=== PATIENT | male | born 1940 | race Caucasian/White ===

== ENCOUNTER 2018-05-03 20:33 | Inpatient (IN) ==
[2018-05-03] MEDS ORDERED: hydrALAZINE 25 MG TABLET PO SCH (23:00)
--- NOTE | 2018-05-03 23:59 | Internal Med History&Physical ---
Date of Encounter: 05/04/18 Time of Encounter: 23:59 Internal Medicine - H&P: HPI Chief complaint: fatigue Admitted From: Intrahospital Transfer Plans for Post Hospital Care: Home History of present illness: Kory Contreras is a 77-year-old man with a history of atrial fibrillation, heart failure, CKD and hypothyroidism who underwent pacemaker placement about 2 months ago at [facility] and has been on apixaban for anticoagulation. He is transferred now from [facility] to [place] due to concerns for GI bleed. He states that over the past few weeks he has felt notably fatigued, short of breath and noticed dark stool. He denies abdominal pain, nausea or vomiting however. In the ER he was seen to have a hemoglobin of 6.1 and was transfused with 1 unit of PRBC prior to his transfer here. On arrival he feels well and has no complaints at this time. He does report he took his apixaban earlier in the day. Past Med Surg Social Fam HX - Past Medical History Medical history: arthritis, atrial fibrillation, COPD, coronary artery disease, hyperlipidemia, hypertension, renal disease, thyroid disease Additional medical history: pacer Psychiatric history: no psych history - Past Surgical History Surgical History: vascular surgery - Social History Smoking Status: Former smoker Smokeless Tobacco Status: No Alcohol use: none Drug use: none - Family History Mother History Unknown: Yes Internal Medicine - H&P: Meds Apixaban [Eliquis] 5 mg PO BID 08/24/16 [History] Levothyroxine [Synthroid] 125 mcg PO DAILY 08/24/16 [History] Losartan Potassium [Cozaar] 25 mg PO DAILY 08/24/16 [History] Metoprolol [Lopressor] 100 mg PO DAILY 08/24/16 [History] Simvastatin 10 mg PO DAILY 08/24/16 [History] Amiodarone [Cordarone] 200 mg PO DAILY 10/06/17 [History] Ventolin Hfa 90 mcg IH 05/04/18 [History] Allergy/AdvReac Type Severity Reaction Status Date / Time Penicillins [PCN] Allergy Rash Verified 08/24/16 15:41 All Systems PM: A 10-system review of systems was performed and is negative for pertinent findings except as documented above in the HPI. - Constitutional Exam: Vitals: Reviewed General: Well-appearing and in NAD. Skin: Warm and supple. HEENT: Moist mucous membranes. No conjunctivae pallor. Neck: No lymphadenopathy. No JVD. No carotid bruits. No palpable thyroid. Chest: Normal thoracic expansion. Normal breath sounds. Clear to auscultation. Heart: Normal S1 & S2; rhythmic. No rubs or murmurs. Abdomen: Non-distended, soft and non-tender to palpation. No peritoneal reaction. Extremities: No clubbing, cyanosis or edema. No calf tenderness. Normal distal pulses. Neurological: Awake, alert and oriented to person, place. Psych: Affect appropriate. - Assessment and plan (1) Symptomatic anemia Current Visit: Yes Status: Acute Assessment and plan: Secondary to acute blood loss from GI bleed in the setting of NOAC use. Currently stable. Will repeat H/H to assess response to 1U pRBC. Will keep NPO and consult GI in the morning to consider endoscopy. PPI BID will be started. Keep NPO in the interim. (2) Atrial fibrillation Current Visit: Yes Status: Chronic Assessment and plan: Will monitor on telemetry. Hold anticoagulation and antiplatelet therapy for now until bleeding issue stabilizes. Continue amiodarone, diltiazem and metoprolol. Qualifiers: Atrial fibrillation type: chronic Qualified Code(s): I48.2 - Chronic atrial fibrillation (3) Hypertension Current Visit: Yes Status: Chronic Assessment and plan: Will resume oral medications noting his hypertensive state currently. Qualifiers: Hypertension type: essential hypertension Qualified Code(s): I10 - Essential (primary) hypertension (4) Hypothyroidism Current Visit: Yes Status: Chronic Assessment and plan: Will check TSH and resume levothyroxine. Qualifiers: Hypothyroidism type: unspecified Qualified Code(s): E03.9 - Hypothyroidism, unspecified - Time Spent With Patient Total time spent is greater than 50% in coordination of care (as documented) at patient's floor/unit and/or counseling patient: Greater than 35 minutes
[2018-05-04] MEDS ORDERED: hydrALAZINE 25 MG TABLET PO ONE (00:29)
[2018-05-04] MEDS ORDERED: Ipratropium/Albuterol Neb 3 ML IH PRN (00:39)
[2018-05-04] MEDS ORDERED: Pantoprazole 40 MG VIAL IVP ONE (00:42)
[2018-05-04] MEDS ORDERED: Chloraseptic Spray 177 ML BOTTLE MM PRN (03:08)
[2018-05-04] MEDS: Pantoprazole 40 MG VIAL IVP SCH ×2 (06:13→18:51)
[2018-05-04] MEDS ORDERED: Levothyroxine 25 MCG TABLET PO SCH (06:30)
[2018-05-04 06:37] LABS: Basophils % 0.5 %; Eosinophils % 0.5 %; Hemoglobin 7.4 g/dL (12.9-16.9); Immature Granulocytes % 0.5 % (0-4); Lymphocytes # 0.8 K/mcL (0.6-4.6); Lymphocytes % 14.3 %; Mean Corpuscular HGB Conc 32.2 g/dL (31.6-35.5); Mean Corpuscular Hemoglobin 29.6 pg (28.0-33.3); Mean Platelet Volume 8.7 fL (9.4-12.4); Monocytes # 0.8 K/mcL (0.0-1.3); Platelet Count 243 K/mcL (140-400); Red Cell Distribution Width 14.1 % (11.5-14.5); Segmented Neutrophils % 70.2 %
[2018-05-04 06:50] LABS: INR 1.7
[2018-05-04 06:52] LABS: Activated Partial Thrombo Time 37.3 Seconds (26.0-36.0)
[2018-05-04 07:01] LABS: BUN/Creatinine Ratio 19 (6-26); Blood Urea Nitrogen 24 mg/dL (8-23); Calcium 8.3 mg/dL (8.6-10.3); Carbon Dioxide 24 mEq/L (23-29); Chloride 107 mEq/L (98-107); Glucose 101 mg/dL (70-105); Osmolality,Calculated 286 (280-300); Potassium 4.1 mEq/L (3.5-5.1); Sodium 136 mEq/L (136-145); eGFR For Non-African Americans 56 (> 60)
[2018-05-04 07:14] LABS: Thyroid Stimulating Hormone 4.397 mcIU/mL (0.340-5.600)
[2018-05-04] MEDS ORDERED: Ringers Solution, Lactated 1,000 ML IVC SCH (08:00)
--- NOTE | 2018-05-04 08:41 | Internal Med Progress Note ---
Hospitalist Progress Note - Encounter Date of Encounter: 05/04/18 Time of Encounter: 08:32 - Subjective Interval History: Patient seen and examined this morning at bedside. No acute overnight events. Patient currently denies any chest pain shortness of breath or palpitation. Did have some dizziness and easy fatigability over the past few days. Also on did verify he noted black stool or past few days. Denies any previous similar episode. Has not had any further bowel movements after hospitalization. - Exam Vitals: Temp Pulse Resp BP Pulse Ox 98.1 F 74 16 155/68 93 05/04/18 07:01 05/04/18 07:01 05/04/18 07:01 05/04/18 07:01 05/04/18 07:01 Exam: General: In no acute distress. Conversant. Pleasent Respiratory exam: CTAB. no accessory muscle use, rales, rhonchi, wheezes Cardiovascular exam: RRR, +S1, +S2. systolic murmur noted diffusely. No gallop, rubs. GI/Abdominal exam: Non-tender, Non-distended, normal bowel sounds, soft, no peritoneal signs. Extremities exam: full ROM, no pedal edema, warm, pulses palpable in b/l lower extremities. no calf tenderness Neurological exam: CN II-XII intact, AO X3, no focal deficits. no pronater drift, facial droop, speech deficit Skin exam: No skin rash, ulcer, purpura or ecchymosis. - Assessment and Plan (1) Hypothyroidism Current Visit: Yes Status: Chronic (2) Hypertension Current Visit: Yes Status: Chronic (3) Atrial fibrillation Current Visit: Yes Status: Chronic (4) Symptomatic anemia Current Visit: Yes Status: Acute - Summary of Assessment and Plan Summary of Assessment and Plan: Symptomatic anemia - Likely from acute blood loss from GI bleed, Possibly upper. - Hold apixaban - s/p 1 PRBC. Hb 7.4 from 6.1 - Hemodynamically stable. - keep NPO except meds with sips of water. - Surgery consulted for EGD. - c/w PPI BID Iv Atrial fibrillation - c/w telemetry. - Hold anticoagulation give possible GI bleed. - c/w amiodarone, diltiazem and metoprolol PO with sips of water. Hypertension - c/w home antihypertensive with sips of water. Hypothyroidism - Will check TSH and resume levothyroxine. Internal Medicine: Result - Labs CBC & Chem 7: 05/04/18 06:30 05/04/18 06:30 Labs: Short CBC 05/04/18 Range/Units 06:30 WBC 5.7 (4.3-11.1) K/mcL Hgb 7.4 L (12.9-16.9) g/dL Hct 23.0 L (37.5-50.1) % Plt Count 243 (140-400) K/mcL Neutrophils # 4.0 (1.6-8.9) K/mcL BMP 05/04/18 06:30 Sodium 136 Potassium 4.1 Chloride 107 Carbon Dioxide 24 BUN 24 H Creatinine 1.24 Glucose 101 Calcium 8.3 L - ABG Interpretation ABG results: PT/INR, D-dimer PT 19.0 Seconds (9.4-12.1) H 05/04/18 06:30 Consult Discharge Plan - Plan Referrals: Elena Kraft DO [Primary Care Provider] - (1) Hypothyroidism Qualifiers: Hypothyroidism type: unspecified Qualified Code(s): E03.9 - Hypothyroidism, unspecified (2) Hypertension Qualifiers: Hypertension type: essential hypertension Qualified Code(s): I10 - Essential (primary) hypertension (3) Atrial fibrillation Qualifiers: Atrial fibrillation type: chronic Qualified Code(s): I48.2 - Chronic atrial fibrillation
[2018-05-04] MEDS ORDERED: Levothyroxine Sodium 100 MCG VIAL IVP ONE (08:43)
[2018-05-04] MEDS ORDERED: *HR* Metoprolol 5 MG/5 ML VIAL IVP SCH ×3 (08:48→18:00)
[2018-05-04] MEDS ORDERED: Diltiazem CD (24hr) 120 MG CAPSULE PO SCH (09:00)
[2018-05-04] MEDS: Metoprolol 100 MG TABLET PO SCH (10:04)
[2018-05-04] MEDS: *HR* Amiodarone 200 MG TABLET PO SCH (10:04)
--- NOTE | 2018-05-04 12:12 | Internal Medicine Consult Note ---
Date of Encounter: 05/05/18 Time of Encounter: 12:10 - Assessment and Plan (1) GI bleeding Current Visit: Yes Status: Acute Assessment and plan: This may be from a upper source, but also may be due to a slow right colon bleed. Differential diagnosis to include esophagitis. His gastritis or even ulcer disease. If this is negative with an upper endoscopy tomorrow, he will need colonoscopy. I have discussed risks and benefits of the procedure with he and the family today. They have signed consent. He has had significant blood loss anemia, we will transfuse 1 more unit given his cardiac disease and prevent atrial fibrillation with rapid rates. Continue to maintain IV PPI therapy. Qualifiers: Qualified Code(s): K92.2 - Gastrointestinal hemorrhage, unspecified (2) COPD (chronic obstructive pulmonary disease) Current Visit: Yes Status: Chronic Assessment and plan: This is stable, he is comfortable, he does admit wearing O2 at [place] from time to time. Qualifiers: Qualified Code(s): J44.9 - Chronic obstructive pulmonary disease, unspecified (3) Atrial fibrillation Current Visit: Yes Status: Chronic Qualifiers: Atrial fibrillation type: chronic Qualified Code(s): I48.2 - Chronic atrial fibrillation (4) Hypertension Current Visit: Yes Status: Chronic Qualifiers: Hypertension type: essential hypertension Qualified Code(s): I10 - Essential (primary) hypertension (5) Hypothyroidism Current Visit: Yes Status: Chronic Qualifiers: Hypothyroidism type: unspecified Qualified Code(s): E03.9 - Hypothyroidism, unspecified Internal Medicine - CN: HPI - Data of Consult Patient: new to practice Requesting Physician: Duncan Santiago MD - Consult Narrative Reason for consult: GI bleeding with blood loss anemia History of present illness: Mr. Contreras is a 77 year old male transferred to [place], from [facility]. I was asked to see him regarding GI bleeding, at the request of the hospitalist. He reports in the last week or 2 feeling somewhat progressively weaker, and the last couple of days had had some melena. His last bowel movement with melena and was roughly 2-3 days ago. He said no prior history of GI bleeding. Admits being on a combination of aspirin and ELiquis over the past 4 years He also reports a fair amount of reflux of late, denies any nonsteroidal use. He has lost a fair amount of weight in the last couple months as well.. Past Med Surg Social Fam HX - Past Medical History Medical history: arthritis, atrial fibrillation, COPD, coronary artery disease, hyperlipidemia, hypertension, thyroid disease Additional medical history: pacer Psychiatric history: no psych history - Past Surgical History Surgical History: vascular surgery Additional surgical history: Denies any surgery on the abdominal aorta. - Social History Smoking Status: Former smoker Smokeless Tobacco Status: No Alcohol use: none Drug use: none - Family History Mother History Unknown: Yes - Constitutional Constitutional: anorexia, fatigue, lethargy, weakness, weight loss, no chills, no falls - Cardiovascular Cardiovascular ROS IM: dyspnea on exertion, irregular heart rhythm, no chest pain, no diaphoresis, no syncope - Respiratory Respiratory: dyspnea on exertion, no cough, no dyspnea, no hemoptysis - Gastrointestinal Gastrointestinal: heartburn, melena, no abdominal pain, no belching, no constipation, no diarrhea - Neurological Neurological ROS: weakness, no focal weakness, no paresthesias, no restless legs Internal Medicine - CN: Meds Apixaban [Eliquis] 5 mg PO BID 08/24/16 [History] Levothyroxine [Synthroid] 125 mcg PO DAILY 08/24/16 [History] Losartan Potassium [Cozaar] 25 mg PO DAILY 08/24/16 [History] Metoprolol [Lopressor] 100 mg PO DAILY 08/24/16 [History] Simvastatin 10 mg PO DAILY 08/24/16 [History] Amiodarone [Cordarone] 200 mg PO DAILY 10/06/17 [History] Ventolin Hfa 90 mcg IH 05/04/18 [History] Allergy/AdvReac Type Severity Reaction Status Date / Time Penicillins [PCN] Allergy Rash Verified 08/24/16 15:41 Internal Med - CN: Exam - Constitutional Vitals: Temp Pulse Resp BP Pulse Ox 98.4 F 63 16 160/65 96 05/04/18 10:51 05/04/18 10:51 05/04/18 10:51 05/04/18 10:51 05/04/18 10:51 General appearance IM: Present: A&O X 3, pleasant, no acute distress, underweight, answers questions appropriately - Head Head exam: Present: atraumatic - Eye Eye exam: Present: EOMI, conjuntiva pink, sclera anicteric - ENT ENT exam: Present: mucous membranes moist Additional comments: No teeth - Neck Neck exam general surgery: Present: supple, trachea midline - Respiratory Respiratory exam: Present: CTAB. Absent: respiratory distress, wheezes, tachypnea - Cardiovascular Cardiovascular exam IM: Present: diastolic murmur, RRR, +S4, systolic murmur. Absent: JVD, tachycardia - GI/Abdominal GI/Abdominal exam IM: Present: normal bowel sounds, soft, no peritoneal signs. Absent: mass, splenomegaly, tenderness - Rectal Rectal exam: Present: deferred Internal Medicine - CN: Reslt - Labs CBC & Chem 7: 05/05/18 05:02 05/05/18 05:02 Labs: Short CBC 05/04/18 Range/Units 06:30 WBC 5.7 (4.3-11.1) K/mcL Hgb 7.4 L (12.9-16.9) g/dL Hct 23.0 L (37.5-50.1) % Plt Count 243 (140-400) K/mcL Neutrophils # 4.0 (1.6-8.9) K/mcL BMP 05/04/18 06:30 Sodium 136 Potassium 4.1 Chloride 107 Carbon Dioxide 24 BUN 24 H Creatinine 1.24 Glucose 101 Calcium 8.3 L - ABG Interpretation ABG results: PT/INR, D-dimer PT 19.0 Seconds (9.4-12.1) H 05/04/18 06:30 Consult Discharge Plan - Plan Referrals: Elena Kraft DO [Primary Care Provider] -
[2018-05-04] MEDS ORDERED: 0.9 % Sodium Chloride 500 ML ONE (14:43)
[2018-05-04 18:58] LABS: Hematocrit 25.7 % (37.5-50.1); Hemoglobin 8.4 g/dL (12.9-16.9)
[2018-05-05 05:34] LABS: Basophils % 0.4 %; Eosinophils # 0.1 K/mcL (0.0-0.6); Eosinophils % 0.8 %; Hematocrit 25.4 % (37.5-50.1); Hemoglobin 8.5 g/dL (12.9-16.9); Immature Granulocytes % 0.8 % (0-4); Lymphocytes % 13.4 %; Mean Corpuscular HGB Conc 33.5 g/dL (31.6-35.5); Mean Corpuscular Hemoglobin 29.9 pg (28.0-33.3); Mean Corpuscular Volume 89.4 fL (83.0-100.0); Mean Platelet Volume 8.9 fL (9.4-12.4); Monocytes # 1.2 K/mcL (0.0-1.3); Monocytes % 17.1 %; Neutrophils # 4.9 K/mcL (1.6-8.9); Platelet Count 253 K/mcL (140-400); Red Blood Count 2.84 M/mcL (4.19-5.50); Red Cell Distribution Width 14.6 % (11.5-14.5); Segmented Neutrophils % 67.5 %
[2018-05-05 05:57] LABS: BUN/Creatinine Ratio 17 (6-26); Blood Urea Nitrogen 23 mg/dL (8-23); Calcium 8.3 mg/dL (8.6-10.3); Carbon Dioxide 24 mEq/L (23-29); Chloride 106 mEq/L (98-107); Glucose 104 mg/dL (70-105); Osmolality,Calculated 280 (280-300); Potassium 4.2 mEq/L (3.5-5.1); Sodium 133 mEq/L (136-145); eGFR For Non-African Americans 52 (> 60)
[2018-05-05] MEDS: Pantoprazole 40 MG VIAL IVP SCH ×2 (06:06→18:32)
[2018-05-05] MEDS: *HR* Amiodarone 200 MG TABLET PO SCH (08:30)
[2018-05-05] MEDS: Ringers Solution, Lactated 1,000 ML IVC SCH (08:39)
[2018-05-05] MEDS: Metoprolol 100 MG TABLET PO SCH (08:40)
[2018-05-05] MEDS ORDERED: Simethicone 40 MG/0.6 ML MLS IR ONE (12:13)
[2018-05-05] MEDS ORDERED: Tetracaine/Benzocaine/Butamben 1 SPRAY AEROSOL MM ONE (12:13)
[2018-05-05] MEDS ORDERED: *HR* Midazolam HCl 5 MG/5 ML VIAL IVP ONE (12:13)
[2018-05-05] MEDS ORDERED: *HR* FentaNYL (PF) 100 MCG/2 ML VIAL IVP ONE (12:13)
--- NOTE | 2018-05-05 12:14 | Pre-Sedation Evaluation ---
Pre-sedation evaluation - Pre-sedation checklist Date of procedure: 05/05/18 Procedure: EGD Recent Vitals: Last Vital Signs Temp 97.3 F L 05/05/18 10:43 Pulse 63 05/05/18 10:43 Resp 15 05/05/18 10:43 BP 97/48 05/05/18 10:43 Pulse Ox 92 05/05/18 10:43 H&P (including ROS) documented in medical record: Yes Previous reaction to sedatives/anesthetics: No Dietary Status: NPO after Midnight Airway Assessment: Patient can open mouth completely, TMJ function normal Dentition: full dentition, dentures removed ASA Classification *see protocol: CLASS II-Mild systemic disease Plan of Care: Pt appropriate candidate for procedure/moderate/conscious sedation
[2018-05-05] MEDS ORDERED: 0.9 % Sodium Chloride 1,000 ML IVC SCH (12:15)
[2018-05-05] MEDS ORDERED: PEG/Electrolytes/Ascorbic Acid 1 EACH POWD.PACK PO ONE (12:38)
--- NOTE | 2018-05-05 12:41 | Event Note ---
Date of Encounter: 05/05/18 Time of Encounter: 12:39 EGD Findings: 1. Esophagus is normal 2. Minimal gastritis in the body; biopsied; no bleeding areas noted 3. Normal Duodenum Plan: Bowel prep today, with plan for Colonoscopy tomorrow.
--- NOTE | 2018-05-05 14:03 | Internal Med Progress Note ---
Hospitalist Progress Note - Encounter Date of Encounter: 05/05/18 Time of Encounter: 11:49 - Subjective Interval History: Patient seen and examined this morning at bedside. No acute overnight events. Currently denies any chest pain shortness of breath or palpitation. Denies dizziness currently. Ambulating well. NPO. - Exam Vitals: Temp Pulse Resp BP Pulse Ox 97.3 F L 68 16 166/58 97 05/05/18 10:43 05/05/18 12:30 05/05/18 12:30 05/05/18 12:30 05/05/18 12:30 Exam: General: In no acute distress. Conversant. Pleasent Respiratory exam: CTAB. no accessory muscle use, rales, rhonchi, wheezes Cardiovascular exam: RRR, +S1, +S2. systolic murmur noted diffusely. No gallop, rubs. GI/Abdominal exam: Non-tender, Non-distended, normal bowel sounds, soft, no peritoneal signs. Extremities exam: full ROM, no pedal edema, warm, pulses palpable in b/l lower extremities. no calf tenderness Neurological exam: CN II-XII intact, AO X3, no focal deficits. no pronater drift, facial droop, speech deficit Skin exam: No skin rash, ulcer, purpura or ecchymosis. - Assessment and Plan (1) Hypothyroidism Current Visit: Yes Status: Chronic (2) Hypertension Current Visit: Yes Status: Chronic (3) Atrial fibrillation Current Visit: Yes Status: Chronic (4) GI bleeding Current Visit: Yes Status: Acute (5) COPD (chronic obstructive pulmonary disease) Current Visit: Yes Status: Chronic - Summary of Assessment and Plan Summary of Assessment and Plan: Symptomatic anemia - Being evaluated for GI bleed - EGD with normal esophagus, Minimal gastritis in the body; biopsied; no bleeding areas, Normal Duodenum - Plan for colonoscopy tomorrow. - Hold apixaban - s/p 2 PRBC total with one at our facility. - Hemodynamically stable. - daily PPI orally CKD - slighly worsening of renal function. Start maintainence IVF - Appears to be have CKD. - Monitor closely Asthma/COPD overlap syndrome - c/w home singulair and duonebs Atrial fibrillation - c/w telemetry. - Rate controlled - Hold anticoagulation give possible GI bleed. - c/w amiodarone and metoprolol PO at home dose Hypertension - c/w home amiodaraone, losartan and metoprolol. Will hold losartan if renal function worsens. - BP stable. monitor for now Hypothyroidism - TSH normal - resume home levothyroxine. - Time Spent with Patient Total time spent is greater than 50% in coordination of care (as documented) at patient's floor/unit and/or counseling patient: Internal Medicine: Result - Labs CBC & Chem 7: 05/05/18 05:02 05/05/18 05:02 Labs: Short CBC 05/04/18 05/05/18 Range/Units 18:50 05:02 WBC 7.2 (4.3-11.1) K/mcL Hgb 8.4 L 8.5 L (12.9-16.9) g/dL Hct 25.7 L 25.4 L (37.5-50.1) % Plt Count 253 (140-400) K/mcL Neutrophils # 4.9 (1.6-8.9) K/mcL BMP 05/05/18 05:02 Sodium 133 L Potassium 4.2 Chloride 106 Carbon Dioxide 24 BUN 23 Creatinine 1.32 H Glucose 104 Calcium 8.3 L - ABG Interpretation ABG results: PT/INR, D-dimer PT 19.0 Seconds (9.4-12.1) H 05/04/18 06:30 Consult Discharge Plan - Plan Referrals: Elena Kraft DO [Primary Care Provider] - (1) Hypothyroidism Qualifiers: Hypothyroidism type: unspecified Qualified Code(s): E03.9 - Hypothyroidism, unspecified (2) Hypertension Qualifiers: Hypertension type: essential hypertension Qualified Code(s): I10 - Essential (primary) hypertension (3) Atrial fibrillation Qualifiers: Atrial fibrillation type: chronic Qualified Code(s): I48.2 - Chronic atrial fibrillation (4) GI bleeding Qualifiers: Qualified Code(s): K92.2 - Gastrointestinal hemorrhage, unspecified (5) COPD (chronic obstructive pulmonary disease) Qualifiers: Qualified Code(s): J44.9 - Chronic obstructive pulmonary disease, unspecified
[2018-05-05] MEDS ORDERED: SODIUM CHLORIDE/NAHCO3/KCL/PEG 4,000 ML SOLN.RECON PO ONE (14:04)
[2018-05-05] MEDS: Ipratropium/Albuterol Neb 3 ML IH SCH ×2 (16:41→21:40)
[2018-05-06] MEDS: Ipratropium/Albuterol Neb 3 ML IH SCH ×5 (03:33→21:34)
[2018-05-06] MEDS: Ringers Solution, Lactated 1,000 ML IVC SCH ×2 (05:36→14:07)
[2018-05-06] MEDS: Pantoprazole 40 MG VIAL IVP SCH (05:37)
[2018-05-06 06:12] LABS: Basophils % 0.6 %; Eosinophils % 0.4 %; Hematocrit 24.1 % (37.5-50.1); Hemoglobin 7.8 g/dL (12.9-16.9); Immature Granulocytes % 1.1 % (0-4); Lymphocytes # 0.9 K/mcL (0.6-4.6); Lymphocytes % 18.3 %; Mean Corpuscular HGB Conc 32.4 g/dL (31.6-35.5); Mean Corpuscular Hemoglobin 29.8 pg (28.0-33.3); Mean Platelet Volume 8.9 fL (9.4-12.4); Monocytes # 0.7 K/mcL (0.0-1.3); Monocytes % 15.4 %; Platelet Count 242 K/mcL (140-400); Red Blood Count 2.62 M/mcL (4.19-5.50); Red Cell Distribution Width 14.5 % (11.5-14.5); Segmented Neutrophils % 64.2 %
[2018-05-06 06:22] LABS: BUN/Creatinine Ratio 16 (6-26); Blood Urea Nitrogen 20 mg/dL (8-23); Carbon Dioxide 20 mEq/L (23-29); Chloride 105 mEq/L (98-107); Glucose 92 mg/dL (70-105); Osmolality,Calculated 282 (280-300); Potassium 3.6 mEq/L (3.5-5.1); Sodium 135 mEq/L (136-145); eGFR For Non-African Americans 54 (> 60)
[2018-05-06] MEDS: Metoprolol XL (24 HR) Succ 25 MG TAB.ER.24H PO SCH (08:15)
[2018-05-06] MEDS: *HR* Amiodarone 200 MG TABLET PO SCH (08:15)
--- NOTE | 2018-05-06 08:19 | Internal Med Progress Note ---
<Berry Soliz - Last Filed: 05/06/18 14:06> Hospitalist Progress Note - Encounter Date of Encounter: 05/06/18 Time of Encounter: 07:45 - Subjective Interval History: Kory Contreras was seen and examined at bedside. Patient was resting comfortably and denied any acute complaints. Patient denies abdominal pain, nausea, vomiting, chest pain or SOB. He states his fatigue and dizziness continue to improve. Patient denies ever having a colonoscopy performed in the past. Patient denies a family history of colon cancer. - Exam Vitals: Temp Pulse Resp BP Pulse Ox 98.3 F 68 20 146/51 94 05/06/18 06:46 05/06/18 06:46 05/06/18 06:46 05/06/18 06:46 05/06/18 06:46 Exam: General: Patient is alert, oriented, no acute distress Head: atraumatic, normocephalic, Eye: EOMI, no scleral icterus, no conjunctival injection Neck: normal inspection, trachea midline, full ROM Respiratory: Scant wheeze upper left lobe, No crackles or rhonchi Cardiovascular: Regular rate and rhythm. Systolic murmur noted along left sternal border, No clicks, rubs, gallops. Radial pulses 2+ bilaterally, capillary refill < 2 seconds Abdomen: Bowel sounds present and normoactive. Soft. No guarding or rebound. Non-distended, Non-tender in all quadrants Musculoskeletal: Spontaneously moving all extremities. no edema, no calf tenderness - Assessment and Plan (1) Symptomatic anemia Current Visit: Yes Status: Acute Assessment and Plan: a. Suspected secondary to GI bleed but will continue to investigate other causes, patient had iron deficiency anemia and B12 deficiency anemia in September 2017 - Normocytic, normochromic anemia - endoscopy on 05/05 reported mild inflammation in gastric body but otherwise normal EGD with no active bleeding or ulceration in esophagus, gastric fundus or duodenum - Hgb/Hct 05/06 = 7.8/24.1 - Continue monitoring hgb/hct - If patient becomes symptomatic (i.e worsening acute fatigue, tachycardic, dizziness, hypotension, worsening shortness of breath) or hemoglobin drops below 7, may consider another unit of PRBCs - Will start patient on daily iron tablets, will d/c if patient begins to have GI upset - Will give patient IM B12 today and daily B12 b.Colonoscopy scheduled for today c. Keep NPO d. Continue holding apixaban e. Continue IV PPI (2) CKD (chronic kidney disease) stage 3, GFR 30-59 ml/min Current Visit: No Status: Chronic Assessment and Plan: a.Maintenance IVF b.Creatinine improved - 1.29 today c.Continue monitoring Input/output d. Avoid nephrotoxic agents e. Renal function monitoring (3) Atrial fibrillation Current Visit: Yes Status: Chronic Assessment and Plan: a.Known diagnosis, continue metoprolol and amiodarone for rate control b.Hold apixaban secondary to possible GI bleed (4) COPD (chronic obstructive pulmonary disease) Current Visit: Yes Status: Chronic Assessment and Plan: a. Known previous diagnosis, continue home Singular and Duonebs (5) Hypertension Current Visit: Yes Status: Chronic Assessment and Plan: a. Known previous diagnosis, continue with home amiodarone, metoprolol and Losartan (6) Hypothyroidism Current Visit: Yes Status: Chronic Assessment and Plan: a. Known previous diagnosis, continue with home Levothyroxin b. TSH on 05/03 = 4.397 DVT Prophylaxis: a. Hold apixaban b. SCD's - Time Spent with Patient Total time spent is greater than 50% in coordination of care (as documented) at patient's floor/unit and/or counseling patient: less than 15 minutes Internal Medicine: Result - Labs CBC & Chem 7: 05/06/18 05:11 05/06/18 05:11 Labs: Short CBC 05/06/18 Range/Units 05:11 WBC 4.7 (4.3-11.1) K/mcL Hgb 7.8 L (12.9-16.9) g/dL Hct 24.1 L (37.5-50.1) % Plt Count 242 (140-400) K/mcL Neutrophils # 3.0 (1.6-8.9) K/mcL BMP 05/06/18 05:11 Sodium 135 L Potassium 3.6 Chloride 105 Carbon Dioxide 20 L BUN 20 Creatinine 1.29 Glucose 92 Calcium 8.0 L - ABG Interpretation ABG results: PT/INR, D-dimer PT 19.0 Seconds (9.4-12.1) H 05/04/18 06:30 Consult Discharge Plan - Plan Referrals: Elena Kraft DO [Primary Care Provider] - <Amari Lara - Last Filed: 05/06/18 17:42> Hospitalist Progress Note - Encounter Date of Encounter: 05/06/18 - Exam Vitals: Temp Pulse Resp BP Pulse Ox 97.5 F L 61 18 101/34 90 05/06/18 14:09 05/06/18 14:09 05/06/18 15:38 05/06/18 14:09 05/06/18 15:38 - Assessment and Plan (1) Hypothyroidism Current Visit: Yes Status: Chronic (2) Hypertension Current Visit: Yes Status: Chronic (3) Atrial fibrillation Current Visit: Yes Status: Chronic (4) GI bleeding Current Visit: Yes Status: Acute (5) COPD (chronic obstructive pulmonary disease) Current Visit: Yes Status: Chronic - Time Spent with Patient Total time spent is greater than 50% in coordination of care (as documented) at patient's floor/unit and/or counseling patient: Internal Medicine: Result - Labs CBC & Chem 7: 05/06/18 05:11 05/06/18 05:11 Labs: Short CBC 05/06/18 Range/Units 05:11 WBC 4.7 (4.3-11.1) K/mcL Hgb 7.8 L (12.9-16.9) g/dL Hct 24.1 L (37.5-50.1) % Plt Count 242 (140-400) K/mcL Neutrophils # 3.0 (1.6-8.9) K/mcL BMP 05/06/18 05:11 Sodium 135 L Potassium 3.6 Chloride 105 Carbon Dioxide 20 L BUN 20 Creatinine 1.29 Glucose 92 Calcium 8.0 L - ABG Interpretation ABG results: PT/INR, D-dimer PT 19.0 Seconds (9.4-12.1) H 05/04/18 06:30 - Attending Attestation I have seen and examined this patient independently. I have discussed with resident physician Dr Ojeda and medical student Mr Soliz regarding the management plan. Agree with the documentation. <AlexeyreenaJustinBerry W - Last Filed: 05/06/18 14:06> (3) Atrial fibrillation Qualifiers: Atrial fibrillation type: chronic Qualified Code(s): I48.2 - Chronic atrial fibrillation (4) COPD (chronic obstructive pulmonary disease) Qualifiers: Qualified Code(s): J44.9 - Chronic obstructive pulmonary disease, unspecified (5) Hypertension Qualifiers: Hypertension type: essential hypertension Qualified Code(s): I10 - Essential (primary) hypertension (6) Hypothyroidism Qualifiers: Hypothyroidism type: unspecified Qualified Code(s): E03.9 - Hypothyroidism, unspecified <Amari Lara - Last Filed: 05/06/18 17:42> (1) Hypothyroidism Qualifiers: Hypothyroidism type: unspecified Qualified Code(s): E03.9 - Hypothyroidism, unspecified (2) Hypertension Qualifiers: Hypertension type: essential hypertension Qualified Code(s): I10 - Essential (primary) hypertension (3) Atrial fibrillation Qualifiers: Atrial fibrillation type: chronic Qualified Code(s): I48.2 - Chronic atrial fibrillation (4) GI bleeding Qualifiers: Qualified Code(s): K92.2 - Gastrointestinal hemorrhage, unspecified (5) COPD (chronic obstructive pulmonary disease) Qualifiers: Qualified Code(s): J44.9 - Chronic obstructive pulmonary disease, unspecified
[2018-05-06] MEDS ORDERED: Simethicone 40 MG/0.6 ML MLS IR ONE (10:47)
[2018-05-06] MEDS ORDERED: *HR* FentaNYL (PF) 100 MCG/2 ML VIAL IVP ONE (10:47)
[2018-05-06] MEDS ORDERED: *HR* Midazolam HCl 5 MG/5 ML VIAL IVP ONE ×2 (10:47→10:50)
--- NOTE | 2018-05-06 10:48 | Pre-Sedation Evaluation ---
Pre-sedation evaluation - Pre-sedation checklist Date of procedure: 05/05/18 Procedure: Colonoscopy Recent Vitals: Last Vital Signs Temp 98.3 F 05/06/18 10:27 Pulse 66 05/06/18 10:27 Resp 19 05/06/18 10:27 BP 142/42 05/06/18 10:27 Pulse Ox 92 05/06/18 10:27 H&P (including ROS) documented in medical record: Yes Previous reaction to sedatives/anesthetics: No Dietary Status: NPO after Midnight Airway Assessment: Patient can open mouth completely, TMJ function normal Dentition: full dentition, dentures removed ASA Classification *see protocol: CLASS III-Severe systemic disease
[2018-05-06] MEDS ORDERED: *HR* FentaNYL (PF) 100 MCG/2 ML VIAL ONE (10:50)
--- NOTE | 2018-05-06 11:12 | Event Note ---
Date of Encounter: 05/06/18 Time of Encounter: 11:10 Colonoscopy Findings: Colon with pandiverticulosis; no erythema or blood noted. Mild internal hemorrhoids Normal Terminal Ileum Plan 1. Add ASA, hold DOAC for now and possibly for some time; Questionable benefit of Pill-cam 2. Iron infusion today.. will need home po iron 3. advance diet. Family to be notified.
[2018-05-06] MEDS ORDERED: Ferumoxytol 510 MG in 0.9 % Sodium Chloride 100 ML IVPB ONE (11:13)
[2018-05-06] MEDS: 0.9 % Sodium Chloride 1,000 ML IVC SCH ×2 (12:37→13:22)
[2018-05-06] MEDS: Aspirin 81 MG TAB.CHEW PO SCH (12:47)
[2018-05-06] MEDS ORDERED: Cyanocobalamin (B-12) 1,000 MCG/ML VIAL SQ ONE (14:22)
[2018-05-07] MEDS: Ipratropium/Albuterol Neb 3 ML IH SCH ×2 (03:27→10:28)
[2018-05-07 07:10] VITALS: BP 120/40
[2018-05-07 07:59] LABS: Hematocrit 24.2 % (37.5-50.1); Hemoglobin 7.7 g/dL (12.9-16.9); Mean Corpuscular HGB Conc 31.8 g/dL (31.6-35.5); Mean Corpuscular Hemoglobin 29.8 pg (28.0-33.3); Mean Corpuscular Volume 93.8 fL (83.0-100.0); Mean Platelet Volume 8.8 fL (9.4-12.4); Platelet Count 233 K/mcL (140-400); Red Blood Count 2.58 M/mcL (4.19-5.50); Red Cell Distribution Width 15.1 % (11.5-14.5)
[2018-05-07] MEDS: Aspirin 81 MG TAB.CHEW PO SCH (08:26)
[2018-05-07] MEDS: *HR* Amiodarone 200 MG TABLET PO SCH (08:26)
[2018-05-07] MEDS: Metoprolol XL (24 HR) Succ 25 MG TAB.ER.24H PO SCH (08:27)
--- NOTE | 2018-05-07 08:50 | Discharge Summary ---
<Kali Ojeda - Last Filed: 05/07/18 13:07> - NOTES TO OUTPATIENT PROVIDER Notes to Outpatient Provider: Patient admitted for GI bleed. EGD and colonoscopy negative. Hemoglobin stable on discharge. Patient will need followed up on CBC in 1 week. Eliquis discontinuous discharge and will need reevaluation if patient were to continue. Orders not resulted at time of discharge: Pending orders 05/05/18 12:33 Surgical Pathology [PTH] Routine Date of Encounter: 05/07/18 Time of Encounter: 08:48 - Discharge Diagnosis (1) GI bleeding Priority: Primary Status: Acute Qualifiers: Qualified Code(s): K92.2 - Gastrointestinal hemorrhage, unspecified (2) Hypothyroidism Priority: Secondary Status: Chronic Qualifiers: Hypothyroidism type: unspecified Qualified Code(s): E03.9 - Hypothyroidism, unspecified (3) Hypertension Priority: Secondary Status: Chronic Qualifiers: Hypertension type: essential hypertension Qualified Code(s): I10 - Essential (primary) hypertension (4) Atrial fibrillation Priority: Secondary Status: Chronic Qualifiers: Atrial fibrillation type: chronic Qualified Code(s): I48.2 - Chronic atrial fibrillation (5) COPD (chronic obstructive pulmonary disease) Priority: Secondary Status: Chronic Qualifiers: COPD type: emphysema Emphysema type: unspecified Qualified Code(s): J43.9 - Emphysema, unspecified (6) B12 deficiency Priority: Secondary Status: Chronic (7) Iron deficiency anemia Priority: Secondary Status: Chronic Qualifiers: Iron deficiency anemia type: chronic blood loss Qualified Code(s): D50.0 - Iron deficiency anemia secondary to blood loss (chronic) Hospital course: Mr. Contreras is a 77 year old male presented with chief complaint of fatigue, shortness of breath and patient had noticed dark stools. He was initially seen at [facility] and was found to have a hemoglobin of 6.1. Due to concerns for GI bleed as patient was also on Eliquis for atrial fibrillation he was transferred to [facility]. He is transfused 1 unit packed red blood cells. Patient underwent colonoscopy and EGD without any findings of active bleeding. EGD did show mild inflammation the gastric body. Patient's labs in September 2017 showed low B12 and iron. Patient was given IV iron as well as started on B12 and iron supplementation. His Eliquis was discontinued. Patient's hemoglobin has been stable at 7.7. He has no active signs of bleeding. He is able to ambulate independently and tolerating his diet. He will be discharged today. He will follow-up with his PCP and also has a lab order for hemoglobin in 1 week. He is to return to the emergency room if there is any new signs of active bleeding including black stools or bright red blood per rectum or hemoptysis, hematemesis. He is to not start Eliquis until evaluated by PCP. Discharge discussed with: patient, family - Time Spent with Patient Total time spent providing and/or coordinating discharge services: - Discharge Medications Prescriptions: RX: Cyanocobalamin (B-12) [Vitamin B12] 1,000 mcg PO DAILY #30 tablet RX: Ferrous Sulfate 325 mg PO 0800 #30 tablet RX: Omeprazole [PriLOSEC] 20 mg PO DAILY@0630 #30 capsule. [place] Medications: RX: Losartan Potassium [Cozaar] 25 mg PO DAILY 08/24/16 [History] Simvastatin 10 mg PO DAILY 08/24/16 [History] RX: Amiodarone [Cordarone] 200 mg PO DAILY 10/06/17 [History] Selvin Multivit For Men Caplet 1 tab PO DAILY 05/05/18 [History] RX: Aspirin [Lo-Dose Aspirin EC] 81 mg PO DAILY 05/05/18 [History] RX: Fluticasone Propionate Nasal [Flonase] 100 mcg NS DAILY 05/05/18 [History] RX: Levothyroxine [Synthroid] 75 mcg PO DAILY 05/05/18 [History] RX: Metoprolol Succinate [Toprol Xl] 25 mg PO DAILY 05/05/18 [History] RX: Montelukast [Singulair] 10 mg PO HS 05/05/18 [History] RX: Tiotropium Br/Olodaterol HCl [Stiolto Respimat Inhal [place]] 2 puff PO DAILY 05/05/18 [History] RX: Cyanocobalamin (B-12) [Vitamin B12] 1,000 mcg PO DAILY #30 tablet 05/07/18 [Rx] RX: Ferrous Sulfate 325 mg PO 0800 #30 tablet 05/07/18 [Rx] RX: Omeprazole [PriLOSEC] 20 mg PO DAILY@0630 #30 capsule. 05/07/18 [Rx] Allergies/Adverse Reactions: Allergy/AdvReac Type Severity Reaction Status Date / Time Penicillins [PCN] Allergy Rash Verified 08/24/16 15:41 Date of admission: 05/05/18 10:19 Primary care physician: Elena Kraft DO Consults: 05/03/18 22:56 Consult to Gastroenterology [CONS] Routine Consulting Provider: [facility] [place] Reason for Consult: Patient recently started on apixaban for afib presenting with symptomatic anemia. Hgb 6.1 with positive stool occult blood from [facility]. Call Completed: No 05/04/18 08:43 Consult to Surgery [CONS] Routine Consulting Provider: French Raman Reason for Consult: GI bleed Call Completed: Yes Discharging clinician: Kali Ojeda Anticipated date of discharge: 05/07/18 - Constitutional Vitals: Temp Pulse Resp BP Pulse Ox 98.6 F 75 15 120/40 93 05/07/18 07:01 05/07/18 07:01 05/07/18 07:01 05/07/18 07:01 05/07/18 08:00 General appearance: Present: A&O X 3, pleasant, no acute distress, underweight, answers questions appropriately Exam: General: pleasant, without distress HEENT: Head atraumatic, normocephalic, EOMI, PERRL, absent ear discharge or trauma, Moist Mucous Membranes, uvula midline Neck: nontender to palpation, absent lymphadenopathy, Cardiovascualr: Irregular rhythm with no murmur, absent gallops or rubs, absent pedal edema, radial pulses 2 out of 4 Lungs: Clear to auscultation bilaterally, not in respiratory distress Abdomen: Soft nontender, nondistended positive bowel sounds, absent hepatomegaly Skin: warm and dry, absent rash, absent open wounds and nodules MSK: absent clubbing, cyanosis, joints without swelling Neuro: Cranial nerves II through XII intact, UE and LE sensation equal bilaterally, UE and LEstrength 5/5, alert oriented 3, Psych: good insight and judgment - Patient Status Disposition: Home, Self-Care Condition: Fair Functional capacity at discharge: independent ambulation Overall status at discharge: patient is progressing back to baseline - Ambulatory Orders Ambulatory Orders: Hemoglobin and Hematocrit [HEME] Time Frame: 1 Week, Facility: [facility], Location: Lab - Discharge Instructions Instructions: Atrial Fibrillation (DC), Anemia (GEN) Follow Up With: Elena Kraft [Other] - 05/22/18 1:00 pm - Diet and Activity Activity: increase activity as tolerated Diet: low fat, low cholesterol, low salt diet <Amari Lara - Last Filed: 05/07/18 15:37> Orders not resulted at time of discharge: Pending orders 05/05/18 12:33 Surgical Pathology [PTH] Routine Date of Encounter: 05/07/18 - Discharge Diagnosis (1) Hypothyroidism Status: Chronic Qualifiers: Hypothyroidism type: unspecified Qualified Code(s): E03.9 - Hypothyroidism, unspecified (2) Hypertension Status: Chronic Qualifiers: Hypertension type: essential hypertension Qualified Code(s): I10 - Essential (primary) hypertension (3) Atrial fibrillation Status: Chronic Qualifiers: Atrial fibrillation type: chronic Qualified Code(s): I48.2 - Chronic atrial fibrillation (4) GI bleeding Status: Acute Qualifiers: Qualified Code(s): K92.2 - Gastrointestinal hemorrhage, unspecified (5) COPD (chronic obstructive pulmonary disease) Status: Chronic Qualifiers: COPD type: emphysema Emphysema type: unspecified Qualified Code(s): J43.9 - Emphysema, unspecified (6) B12 deficiency Status: Chronic (7) Iron deficiency anemia Status: Chronic Qualifiers: Iron deficiency anemia type: chronic blood loss Qualified Code(s): D50.0 - Iron deficiency anemia secondary to blood loss (chronic) Hospital course: Mr. Contreras is a 77 year old male - Time Spent with Patient Total time spent providing and/or coordinating discharge services: Date of admission: 05/05/18 10:19 Primary care physician: Elena Kraft DO Consults: 05/03/18 22:56 Consult to Gastroenterology [CONS] Routine Consulting Provider: [facility] [place] Reason for Consult: Patient recently started on apixaban for afib presenting with symptomatic anemia. Hgb 6.1 with positive stool occult blood from [facility]. Call Completed: No 05/04/18 08:43 Consult to Surgery [CONS] Routine Consulting Provider: French Raman Reason for Consult: GI bleed Call Completed: Yes - Constitutional Vitals: Temp Pulse Resp BP Pulse Ox 98.6 F 75 16 120/40 96 05/07/18 07:01 05/07/18 07:01 05/07/18 10:28 05/07/18 07:01 05/07/18 10:28 - Attending Attestation I have seen and examined this patient independently. I have discussed with resident physician Dr Ojeda regarding the discharge and follow up plan. Agree with the documentation.
[2018-05-07] MEDS ORDERED: Cyanocobalamin (B-12) 1,000 MCG TABLET PO SCH (09:00)
== END 2018-05-07 11:53 | disposition home or self-care (01) | DRG 378 ==
LOC: 3ANU → SUATTDRO 22:04
PROVIDERS: ADMIT Internal Medicine; ATTEND Internal Medicine
PROC: ENDOEBX (2018-05-05 16:15)